=== PATIENT | male | born 1985 | race Two or more races ===

== ENCOUNTER 2024-12-09 07:43 | Emergency (ER) | payer MEDICAID, OTHER ==
[~2024-12-09] VITALS: Ht 175.3 cm; Wt 90.0 kg
[2024-12-09 09:01] VITALS: BP 158/91; PULSE 93; RESP 18; TEMP 98; O2SAT 100
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
[2024-12-09] MEDS: HYDROcodone-ACET 7.5/325MG TAB PO ONE (09:56)
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
[2024-12-09] MEDS ORDERED: IBUP-1454 PO (10:43)
[2024-12-09] MEDS ORDERED: METH-1181 PO (10:43)
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
== END 2024-12-09 10:50 | disposition home or self-care (01) ==
LOC: EDBD 07:43 → ER 07:43
DX: M25.511 Pain in right shoulder (principal); R07.81 Pleurodynia; V89.2XXA Person injured in unspecified motor-vehicle accident, traffic, initial encounter; Y93.89 Activity, other specified; Y92.410 Unspecified street and highway as the place of occurrence of the external cause; Y99.8 Other external cause status
CPT/HCPCS: 71111; 72040